=== PATIENT | female | born 1985 | race Caucasian/White ===

== ENCOUNTER 2016-10-25 01:50 | Inpatient (IN) | payer MEDICAID ==
[~2016-10-25] VITALS: Ht 162.6 cm; Wt 63.5 kg
[2016-10-25 02:16] LABS: BILIRUBIN,URINE NEGATIVE (NEGATIVE); UROBILINOGEN,URINE NORMAL (NEGATIVE)
[2016-10-25 02:18] LABS: APPEARANCE,URINE CLEAR (CLEAR); UA COLOR STRAW (YELLOW)
[2016-10-25 02:33] LABS: UR BENZODIAZEPINE QUAL NEGATIVE (NEGATIVE); UR COCAINE QUAL NEGATIVE (NEGATIVE)
[2016-10-25] MEDS ORDERED: BRETHINE SQ STA (02:50)
[2016-10-25] MEDS ORDERED: CELESTONE SOLUSPAN 6 MG/ML IM STA (02:50)
[2016-10-25] MEDS ORDERED: LACTATED RINGERS 1,000 ML ONE ×2 (02:53→08:21)
[2016-10-25] MEDS ORDERED: BRETHINE SQ ONE (02:54)
[2016-10-25] MEDS ORDERED: PHENERGAN IV PRN ×2 (03:00→09:00)
[2016-10-25] MEDS ORDERED: LACTATED RINGERS IV SCH (03:00)
[2016-10-25] MEDS ORDERED: TYLENOL PO PRN (03:00)
[2016-10-25 03:20] LABS: HEMOGLOBIN 9.8 g/dL (12.0-15.0); MEAN CELL HGB 32.9 pg (26-34); MEAN CELL HGB CONCENTRATION 34.4 g/dL (33-37); MEAN CORP VOLUME 95.6 fL (78-100); MEAN PLATELET VOLUME 8.5 fL (7.8-11.0); RED CELL DISTRIBUTION WIDTH 12.2 % (11.5-14.5); WHITE BLOOD CELL 8.6 10^3/uL (4.5-11.0)
[2016-10-25 03:33] LABS: CALCIUM 8.3 mg/dL (8.4-10.5); CARBON DIOXIDE 23.9 mmol/L (20.0-32)
[2016-10-25] MEDS ORDERED: BRETHINE SQ PRN (04:00)
[2016-10-25] MEDS ORDERED: BRETHINE PO SCH (04:00)
[2016-10-25] MEDS ORDERED: MAGNESIUM SULFATE 50 ML IV ONE ×2 (05:00)
[2016-10-25] MEDS ORDERED: CALCIUM GLUCONATE IV PRN (05:00)
[2016-10-25] MEDS ORDERED: MAGNESIUM SULFATE 100 ML IV ONE (05:05)
[2016-10-25] MEDS ORDERED: MAGNESIUM SULFATE 1,000 ML IV SCH (06:00)
[2016-10-25] MEDS ORDERED: PHENERGAN ONE (08:21)
[2016-10-25] MEDS ORDERED: DEMEROL ONE ×2 (08:22)
[2016-10-25] MEDS ORDERED: ZOFRAN IV PRN (09:00)
[2016-10-25] MEDS ORDERED: CELEXA PO SCH (09:00)
[2016-10-25] MEDS ORDERED: DEMEROL IV PRN (09:00)
[2016-10-25] MEDS ORDERED: PRENATAL VITAMIN TABLET PO SCH (09:00)
--- NOTE | 2016-10-25 10:13 | PCM.HP ---
OB - Chief Complaint & HPI Date of Admission: Date of Admission: Oct 25, 2016 at 04:57 Diagnosis Debora Bates is a 30yo thin WF h/o C/S X 1 for most recent delivery secondary to h/o shoulder dystocia, who has very fragmented PNC this . See description below. She is here visiting her grandparents with her three boys. She is currently 28+ weeks' gestation and she is in PTL She was started on Magnesium IV late last night, but I just stopped it this morning of suspicion of Magnesium toxicity, however it was probably a paradoxical reaction from Phenergan IV (she was given Demerol/Phenergan @ 0840). Pt was observed to have a tremor by nursing staff. I AM RESTARTING THIS MAGNESIUM AT 1gram/hr because during this interview her tremor activity was decreasing. Pt was feeling contractions during the interview but her belly was palpating soft. Pt' s FOB is an old boyfriend; she is still technically to Luc Bates who lives in [facility]. CARE HAS BEEN VERY FRAGMENTED, AND PATIENT WAS PLANNING ON A HOME PERFORMED BY A INSPECTOR LINE IN [facility] (pt has only had one visit with her). Chief Complaint/History : 5 Para: 3 EDC: Jan 14, 2017 EGA: 28 05/27 Reason for admission: labor Admission Nurse Assessment Rev: Yes OB - History Hx of Present Care: Other (Started out with a burr grinder in [place] and patient was going to deliver at the [facility] in [place]. She had a 9- week U/S performed (TV) at that clinic. Pt transferred care to Martha Turner in [facility], who patient would go see when she would bring her boys to visit their Dad in [facility]. Plan was for Martha Turner to drive to [facility]) and peform a home .) Ultrasounds: Other (U/S was performed at 25 weeks in [place]) Obstetrical Complications: Other ( LABOR; pt says she has been soniya for about 2 mos now (since 20 weeks)!) Medical Complications: None Other Concerns: She has three boys, last delivery was by C/S (she is s/p X 2 with second vag delivery having a shoulder dystocia). The C/S was performed secondary to suspected macrosomia (Mar 2014, at [facility] in [facility]). Pt delivered in [place] in 2007 and had a PPH (no transfusion). When pt was in 2010, she moved to [facility] from [place], and started care with an MFM. She has a h/ o Spont AB X 1, not requiring D&C. She had a heart ablation in 1995 at [facility] in [facility] (she was 10 yo). She had a laparoscopy in [place] in 2004 to ablate endometriosis. She had lithotripsy about three times in [place]. SHE TAKES CELEXA 20mg's PO QD (she used to be on 40mg's PO QD, but it was weaned down for the ); she says that she is doing really well on 20mg' s Celexa PO QD. Past Family/Social History * Past Medical, Surgical, Family and Obstetric Histories reviewed from chart. Blood Type: O+ OB - Admission Exam Physical Exam Vitals: 105/55, pulse 92; pt is talkative, communicative. She had been having some tremor-like activity (self-limited) at the beginning of this interview. HEENT: NCAT Lungs: Clear Abdomen: Gravid Extremities: Normal Reflexes: Normal Cervical Dilatation: 1cm Effacement: 0% Station: -3 Membranes: Intact (Amnisure negative) Heart Rate: 130's Accelerations: No Accelerations Decelerations: No Decelerations Intensity: Mild (some contractions do not papate at all) Presentation: unknown OB - Assessment/Plan Assessment Assessment: labor Plan Plan: Other (Continue IV Magnesium tocolysis at 1gram/hr, will possiby go up on dosage. PLAN IS TO TRANSFER TO [facility] TODAY ([facility] BONITA HERNANDEZ MD Oct 25, 2016 10:13
[2016-10-25] MEDS ORDERED: AMPICILLIN SODIUM ONE ×2 (11:03)
[2016-10-25] MEDS ORDERED: NS 100ML 100 ML IV ONE ×2 (11:03)
--- NOTE | 2016-10-25 11:19 | PRM.DC ---
OB Discharge Summary Discharge Summary Discharge Diagnosis: IUP (28 2/7 WEEKS' GESTATION in PTL) Complications: Other (LIKELY PPROM AT 11:00am today (while I was on the phone with Dr Duenas from [facility])) Abnormal Lab Results Laboratory Tests Test 10/25/16 02:10 10/25/16 03:05 10/25/16 09:21 Urine Collection Type CCMS Urine Color STRAW Urine Appearance CLEAR Urine Bilirubin NEGATIVE MG/DL Urine Ketones NEGATIVE Urine Specific [place] 1.010 Urine pH 7 Urine Protein NEGATIVE Urine Urobilinogen NORMAL Urine Nitrate NEGATIVE Urine Leukocyte Esterase NEGATIVE Urine Blood NEGATIVE Urine Glucose 50 Amniotic Fld Alpha Fetoprotein NO RUPTURE Opiates Screen NEGATIVE Barbiturate Screen NEGATIVE Urine Tricyclic Antidepressants NEGATIVE Phencyclidine (PCP) Screen NEGATIVE Amphetamines Screen NEGATIVE Benzodiazepines Screen NEGATIVE Cocaine Screen NEGATIVE Ur Tetrahydrocannabinol (THC) Scrn NEGATIVE White Blood Count 8.6 10^3/uL Red Blood Count 2.98 10^6/uL Hemoglobin 9.8 g/dL Hematocrit 28.5 % Mean Corpuscular Volume 95.6 fL Mean Corpuscular Hemoglobin 32.9 pg Mean Corpuscular Hemoglobin Concent 34.4 g/dL Red Cell Distribution Width 12.2 % Platelet Count 205 10^3/uL Mean Platelet Volume 8.5 fL Sodium Level 138 mmol/L Potassium Level 3.5 mmol/L Chloride Level 105.0 mmol/L Carbon Dioxide Level 23.9 mmol/L Anion Gap 12.6 Blood Urea Nitrogen 8 mg/dL Creatinine 0.37 mg/dL Estimated GFR () 251.6 BUN/Creatinine Ratio 21.0 Glucose Level 99 mg/dL Calcium Level 8.3 mg/dL Total Bilirubin 0.2 mg/dL Aspartate Amino Transf (AST/SGOT) 17 U/L Alanine Aminotransferase (ALT/SGPT) 18 U/L Alkaline Phosphatase 45 U/L Total Protein 5.9 g/dL Albumin 2.6 g/dL Globulin 3.3 HIV-1 Antibody NON-REACTIVE Magnesium Level 4.4 mg/dL Discharge Disposition: Stable Additional Comments Dr Duenas from [facility] accepted this patient for transfer to her care at [facility]. She is aware that this patient likely ruptured her membranes at 11:00am. Celestone 12mg's IM X 1 dose was given at 0315. I had the nurses start IV Ampicillin at suspicion of PPROM. Pt will be tranferred on 1gram/hour of MgSO4. BONITA HERNANDEZ MD Oct 25, 2016 11:19
== END 2016-10-25 11:35 | disposition short-term general hospital (02) | DRG 563 ==
LOC: ATP 01:50 → OBSVTOIN 04:57
PROVIDERS: ADMIT Hospitalist; ATTEND Hospitalist
DX: O60.03 Preterm labor without delivery, third trimester (principal); O34.211 Maternal care for low transverse scar from previous cesarean delivery; O42.913 Preterm premature rupture of membranes, unspecified as to length of time between rupture and onset of labor, third trimester; O09.33 Supervision of pregnancy with insufficient antenatal care, third trimester; Z3A.28 28 weeks gestation of pregnancy; Z88.1 Allergy status to other antibiotic agents; Z88.2 Allergy status to sulfonamides
CPT/HCPCS: 36415; 80053; 80307; 81002; 83735; 84112; 85027; 86762; 86900; 90471; 96372; G0378; J0290; J2175; J2550; J3105; J3475; J7050; J7120; J0702